=== PATIENT | female | born 2000 | race African-American/Black ===

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

== ENCOUNTER 2024-11-12 05:28 | Emergency (ER) | payer MEDICAID, OTHER ==
[~2024-11-12] VITALS: Ht 154.9 cm; Wt 72.1 kg
[~2024-11-12 05:28] MED LIST: NITR-87 MT
[2024-11-12 05:44] VITALS: O2SAT 100
[2024-11-12] MEDS: KETOROLAC 15MG/ML VIAL IM ONE (06:41)
[2024-11-12] MEDS: ACETAMINOPHEN WITH CODEINE 300/30MG TABLET PO ONE (06:42)
[2024-11-12 07:19] LABS: BASOPHILS % 0.4 % (0.0-2.0); EOSINOPHILS % 0.0 % (0.0-5.0); HEMATOCRIT. 39.4 % (36.0-48.0); HEMOGLOBIN. 13.5 g/dL (12.0-16.0); LYMPHOCYTES % 30.8 % (20.0-50.0); MEAN PLATELET VOLUME 6.9 fl (7.4-10.4); MONOCYTES % 7.3 % (2.0-8.0); NEUTROPHILS % 61.5 % (40.0-76.0); PLATELET 437 x1000/uL (130-400); RED BLOOD CELL COUNT 3.83 mill/uL (4.2-5.4); RED CELL DISTRIBUTION WIDTH 12.5 % (11.6-14.6)
[2024-11-12 07:34] LABS: CREATININE 0.7 mg/dL (0.6-1.0); UREA NITROGEN BLOOD < 5 mg/dL (9-23)
[2024-11-12 10:08] VITALS: BP 102/60; PULSE 78; RESP 18; TEMP 36.8; O2SAT 100
== END 2024-11-12 10:18 | disposition short-term general hospital (02) ==
LOC: ER 05:50 → EDBEDREQ 08:51 → CANBEDREQ 10:15 → ER 10:18
DX: M79.672 Pain in left foot (principal); Z87.440 Personal history of urinary (tract) infections; W19.XXXA Unspecified fall, initial encounter; Y93.89 Activity, other specified; Y92.89 Other specified places as the place of occurrence of the external cause; Y99.8 Other external cause status
CPT/HCPCS: 99285; 80048; 81025; 85025; 36415; 73630; 96372; J1885